=== PATIENT | male | born 1995 | race Caucasian/White ===

== ENCOUNTER → 2016-07-24 | Outpatient (CLI) | payer BC, OTHER ==
--- NOTE | 2016-07-24 09:26 | DIAGNOSTIC IMAGING REPORT ---
RIGHT TIBIA/FIBULA 2 VIEWS CLINICAL HISTORY: Right fibular pain COMPARISON: None. DISCUSSION: No fractures are visualized. There are no areas of periostitis. No destructive lesions are evident. IMPRESSION: No evidence of fracture. No evidence of periostitis. Electronically signed by: Michael Grayson M.D. 07/24/2016 9:24 AM Dictated Date/Time: 07/24/2016 9:23 AM
== END | disposition home or self-care (01) ==
LOC: C.RDSM 13:43
PROVIDERS: ATTEND Internal Medicine
DX: M79.661 Pain in right lower leg (principal)

== ENCOUNTER → 2017-10-31 | Outpatient (CLI) | payer BC ==
--- NOTE | 2017-10-31 08:22 | DIAGNOSTIC IMAGING REPORT ---
R FINGER(S) MIN 2 VIEWS CLINICAL HISTORY: RIGHT THUMB PAIN trauma. Pain. COMPARISON: None. DISCUSSION: The bones and joint spaces appear intact. There is no evidence of fracture, dislocation or bony disease. There is no evidence for soft tissue swelling. IMPRESSION: Negative study. The above report was generated using voice recognition software. It may contain grammatical, syntax or spelling errors. Electronically signed by: Gerald Baptiste M.D. 10/31/2017 8:20 AM Dictated Date/Time: 10/31/2017 8:19 AM
== END | disposition home or self-care (01) ==
LOC: C.RDSM 08:09
PROVIDERS: ATTEND Internal Medicine
DX: M79.644 Pain in right finger(s) (principal)